=== PATIENT | male | born 1950 | race Caucasian/White ===

== ENCOUNTER 2021-06-20 08:16 | Day surgery (SDC) | payer MEDICARE, OTHER ==
[~2021-06-20] VITALS: Ht 182.9 cm; Wt 86.5 kg
[2021-06-20] VITALS (7 sets, daily range): BP systolic 112–124; BP diastolic 66–76
[2021-06-20] MEDS ORDERED: FERR236T3 PO (08:59)
[2021-06-20] MEDS ORDERED: VICODIN PO (08:59)
[2021-06-20] MEDS ORDERED: BISO1TAB38 PO (08:59)
[2021-06-20] MEDS ORDERED: LISI10TA27 PO (08:59)
[2021-06-20] MEDS ORDERED: FLAX10007 PO (08:59)
[2021-06-20] MEDS ORDERED: MAGN296S68 PO (08:59)
[2021-06-20] MEDS ORDERED: CHOL400T57 PO (08:59)
[2021-06-20] MEDS ORDERED: VITA1TAB37 (08:59)
[2021-06-20] MEDS ORDERED: ATOR40TA PO (08:59)
[2021-06-20] MEDS ORDERED: FLO0.4C PO (08:59)
[2021-06-20] MEDS ORDERED: ALPR0.5T9 PO (08:59)
[2021-06-20] MEDS ORDERED: MILK500C PO (08:59)
[2021-06-20 11:31] LABS: GLUCOSE,CSF 60 MG/DL (40-75); TOTAL PROTEIN,CSF 75 MG/DL (30-60)
[2021-06-20 12:47] LABS: APPEARANCE,CSF CLEAR
[2021-06-20 12:48] LABS: CSF VOLUME 19 ML; TUBE# COUNTED 3
[2021-06-20 12:49] LABS: CSF SUPERNATANT COLOR COLORLESS
[2021-06-20 12:50] LABS: CSF RBC 284 /CU MM (0)
[2021-06-20 12:51] LABS: CSF WBC CT 4 /CU MM (0-5)
== END 2021-06-20 13:15 | disposition home or self-care (01) ==
LOC: SSTAY O 08:16
PROVIDERS: ATTEND Psychiatry & Neurology Neurology
DX: R26.0 Ataxic gait (principal); R20.2 Paresthesia of skin; I10 Essential (primary) hypertension; E78.5 Hyperlipidemia, unspecified; F41.9 Anxiety disorder, unspecified; Z85.828 Personal history of other malignant neoplasm of skin; Z98.890 Other specified postprocedural states; Z79.899 Other long term (current) drug therapy
CPT/HCPCS: 36415; 62328; 82164; 82784; 82945; 83873; 83916; 84157; 89051

== ENCOUNTER 2024-11-10 12:22 | Outpatient (CLI) | payer MEDICARE, OTHER ==
[~2024-11-10 12:22] MED LIST: ALPR0.5T9 PO; ATOR40TA PO; BISO1TAB38 PO; CHOL400T57 PO; FERR236T3 PO; FLAX10007 PO; FLO0.4C PO; LISI10TA27 PO; MAGN296S68 PO; MILK500C PO; VICODIN PO; VITA1TAB37
== END 2024-11-10 23:59 | disposition home or self-care (01) ==
LOC: MRI02 12:22
PROVIDERS: ATTEND Physician Assistant Surgical
DX: S83.231A Complex tear of medial meniscus, current injury, right knee, initial encounter (principal); S83.411A Sprain of medial collateral ligament of right knee, initial encounter; M17.11 Unilateral primary osteoarthritis, right knee; M25.461 Effusion, right knee; M23.41 Loose body in knee, right knee; M71.21 Synovial cyst of popliteal space [Baker], right knee; M25.561 Pain in right knee; X58.XXXA Exposure to other specified factors, initial encounter; Y93.89 Activity, other specified; Y92.89 Other specified places as the place of occurrence of the external cause; Y99.8 Other external cause status
CPT/HCPCS: 73721